=== PATIENT | female | born 1935 | race Caucasian/White ===

== ENCOUNTER → 2017-07-12 | Outpatient (CLI) | payer MEDICARE ==
[~2017-07-12] MED LIST: ASPI325T33 PO; ATOR20TA15 PO; CALC1TAB87 PO; CHOL500022 PO; COMMODE 3-IN-11 MIS; ECASA81 PO; FLAX10002 PO; HYDR-3580 PO; MULT10CA PO; WALKER WHEELS/F1 MIS
[2017-07-12 12:40] LABS: AUTOMATED NEUTROPHIL # 4.4 TH/MM3 (1.8-7.7); BASOPHIL % 0.8 % (0.0-2.0); EOSINOPHIL # 0.1 TH/MM3 (0-0.4); EOSINOPHIL % 2.1 % (0.0-4.0); HEMATOCRIT 41.7 % (35.0-46.0); HEMOGLOBIN 13.9 GM/DL (11.6-15.3); LYMPHOCYTE # 1.2 TH/MM3 (1.0-4.8); MEAN CORPUSCULAR HEMOGLOBIN 31.7 PG (27.0-34.0); MEAN CORPUSCULAR HGB CONC 33.4 % (32.0-36.0); MEAN PLATELET VOLUME 8.5 FL (7.0-11.0); MONO % 10.5 % (0.0-8.0); MONOCYTE # 0.7 TH/MM3 (0-0.9); NEUT % 67.6 % (16.0-70.0); PLATELET COUNT 218 TH/MM3 (150-450); RED BLOOD COUNT 4.39 MIL/MM3 (4.00-5.30); RED CELL DISTRIBUTION WIDTH 12.5 % (11.6-17.2); WHITE BLOOD COUNT 6.5 TH/MM3 (4.0-11.0)
[2017-07-12 12:49] LABS: INTERNATIONAL NORMALIZED RATIO 1.1 RATIO; PROTHROMBIN TIME - PATIENT 10.7 SEC (9.8-11.6)
[2017-07-12 13:11] LABS: BICARBONATE 29.1 MEQ/L (21.0-32.0); CALCIUM 9.1 MG/DL (8.5-10.1); CREATININE 1.06 MG/DL (0.50-1.00)
[2017-07-12 14:02] LABS: BILIRUBIN, URINE NEG (NEG); BLOOD, URINE NEG (NEG); GLUCOSE,URINE NEG (NEG); KETONE, URINE NEG (NEG); MUCUS URINE FEW /lpf (OCC); NITRITE,URINE NEG (NEG); PH, URINE 5.5 (5.0-8.5); SQUAMOUS EPITHELIAL CELL URINE 1 /hpf (0-5); URINE COLOR YELLOW (YELLW/STRAW); URINE LEUKOCYTE ESTERASE NEG (NEG)
--- NOTE | 2017-07-13 15:45 | EKG ---
Date Performed: 07/12/2017 Time Performed: 12:18:31 PTAGE: 81 years EKG: Sinus rhythm WITH FREQUENT VENTRICULAR PREMATURE COMPLEXES POSSIBLE LEFT ATRIAL ENLARGEMENT LOW QRS VOLTAGE IN WA ECORDIAL LEADS PATTERN CONSISTENT WITH PULMONARY DISEASE ABNORMAL ECG NO PREVIOUS TRACING Poor R-wave progression across the anterior precordium. Clinical neris elation strongly recommended. DOCTOR: Darrell Gonzalez Interpretating Date/Time 07/13/2017 15:44:31
== END ==
LOC: CPRE 11:38
PROVIDERS: ATTEND Orthopaedic Surgery Orthopaedic Surgery of the Spine
DX: Z01.812 Encounter for preprocedural laboratory examination (principal); Z01.810 Encounter for preprocedural cardiovascular examination; M79.609 Pain in unspecified limb
CPT/HCPCS: 36415; 80048; 81001; 85025; 85610; 85730; 93005

== ENCOUNTER 2017-07-20 07:41 | Inpatient (IN) | payer MEDICARE ==
[~2017-07-20] VITALS: Ht 162.6 cm; Wt 88.0 kg
[~2017-07-20 07:41] MED LIST changes: -ASPI325T33 PO; -COMMODE 3-IN-11 MIS; -HYDR-3580 PO; -WALKER WHEELS/F1 MIS
[2017-07-20] MEDS ORDERED: INSULIN HUMAN REGULAR 1,000 UNITS/10 ML VIAL SQ PRN (08:15)
[2017-07-20] MEDS ORDERED: SODIUM CHLORID 0.9% 500 ML IV PRN (08:15)
[2017-07-20] MEDS ORDERED: LACTATED RINGER'S 1000 ML IV PRN (08:15)
[2017-07-20] MEDS ORDERED: TRANEXAMIC ACID INJ 880 MG in SODIUM CHLORIDE 0.9% INJ 100 ML IV SCH (08:15)
[2017-07-20] MEDS ORDERED: VANCOMYCIN 1 GM/200 ML PREMIX IV SCH (08:15)
[2017-07-20] MEDS ORDERED: CHLORHEXIDINE GLUCONATE 2 % 1 PACK (2 CLOTHS) TOPICAL PRN (08:15)
[2017-07-20] MEDS ORDERED: POVIDONE IODINE 5% (ANTISEPSIS KIT) 4 APPLICATIONS EACH NARE PRN (08:15)
[2017-07-20] MEDS ORDERED: CHLORHEXIDINE GLUCONATE 4% SOLN 120 ML BTL TOPICAL SCH (08:15)
[2017-07-20] MEDS ORDERED: EXPAREL PERI-ARTICULAR INJECTION (TOTAL VOL. 60 ML) P-ARTICULR SCH ×2 (08:15)
[2017-07-20] MEDS ORDERED: METOPROLOL TARTRATE 25 MG TAB PO PRN (08:15)
[2017-07-20] MEDS ORDERED: ceFAZolin 2 GM in NS 100 ML IV SCH (08:15)
[2017-07-20] MEDS ORDERED: ACETAMINOPHEN 1000 MG/100 ML 100 ML IV ONE (09:52)
[2017-07-20] MEDS ORDERED: BUPIVACAINE/EPINEPHRINE 0.5% PF 10 ML VIAL ONE (09:55)
[2017-07-20] MEDS ORDERED: GENTAMICIN SULFATE 80 MG/2 ML VIAL ONE (09:55)
[2017-07-20] MEDS ORDERED: BUPIVACAINE/EPINEPHRINE 0.5% 50 ML VIAL ONE (09:55)
[2017-07-20] MEDS ORDERED: ceFAZolin INJ 1,000 MG VIAL ONE (10:21)
[2017-07-20] MEDS ORDERED: BUPIVACAINE/EPINEPHRINE 0.25% 50 ML VIAL ONE ×2 (10:29→10:39)
[2017-07-20] MEDS ORDERED: GLYCOPYRROLATE 1 MG/5 ML SYRINGE IV PUSH ONE (12:00)
[2017-07-20] MEDS ORDERED: ONDANSETRON HCL 4 MG/2 ML VIAL IV ONE (12:00)
[2017-07-20] MEDS ORDERED: LACTATED RINGER'S 1000 ML INJ 2,000 ML IV ONE (12:00)
[2017-07-20] MEDS ORDERED: PROPOFOL 200 MG/20 ML AMP IV ONE (12:00)
[2017-07-20] MEDS ORDERED: ROCURONIUM INJ 50 MG/5 ML SYRINGE IV PUSH ONE (12:00)
[2017-07-20] MEDS ORDERED: DEXAMETHASONE SOD PHOS 4 MG/ML VIAL IV ONE (12:00)
[2017-07-20] MEDS ORDERED: LIDOCAINE HCL 1% PF 5 ML SYRINGE OTHER ONE (12:00)
[2017-07-20] MEDS ORDERED: NEOSTIGMINE 5 MG/5 ML SYRINGE IV PUSH ONE (12:00)
--- NOTE | 2017-07-20 13:13 | PD.OP ---
cc: Isaías Massey MD Operative Report Date of Surgery: Jul 20, 2017 Preoperative Diagnosis: Osteoarthritis left hip Postoperative Diagnosis: Same Procedure: Left total hip replacement arthroplasty, direct anterior exposure Anesthesia: Gen. Surgeon: Isaías Massey [employer]obile Body Worker(s): JAYLEEN Lees Operation and Findings: EBL: 400 cc INDICATION: This patient presents with significant hip pain related to severe osteoarthritis of the left hip. Despite extensive conservative care this patient continues to be painful and now presents for surgical treatment. NOTE: Tracy Lees PA-C was present for the entire surgical procedure as my assistant county attorney. In my medical opinion her skill and care was necessary for the proper management of this patient. COMPONENTS: COMPANY: [employer] CUP: [place], 50, 100 series, gription surface LINER: Altrx 32, neutral STEM: [place], size 12, standard offset, hydroxyapatite-coated HEAD: Metal, 32, +5, 12/14 taper PROCEDURE: This patient was brought to the operating room and anesthetized in the supine position and positioned on the fracture table with both legs held extended. The left hip and leg was scrubbed with alcohol followed by Hibiclens followed by ChloraPrep and draped sterilely. Antibiotics were given within routine time window and a timeout was done. A 4 inch incision was made starting 2 cm distal and 2 cm lateral to the anterior superior iliac spine. The fascia rosie was opened longitudinally. The interval between the fascia rosie and the rectus was opened down to the capsule of the hip joint. Retractors were positioned allowing good visualization of the capsule. This was opened longitudinally and flaps were created. Stay sutures were utilized. Exposure was excellent. The neck was cut at the proper location using fluoroscopy as a guide. The head was removed. Deep retractors were positioned allowing good visualization of the acetabulum. Acetabulum was deepened down to the floor starting with a proper size reamer and reaming up to 49 mm. A trial was utilized. Fluoroscopy was used to check position and confirmed satisfactory alignment. The rim was reamed with a 50 mm reamer and the final cup was positioned in approximately 20 of anteversion and 40-45 of abduction. Position was satisfactory. A single hole eliminator was positioned followed by the final liner. The lifting hook was utilized. The leg was dropped to the floor, maximally externally rotated and brought across the midline. Retractors were positioned. A box osteotome was utilized followed by progressive broaching to the proper stem size. Trial reduction showed excellent alignment and fit. With 60 of external rotation the leg was dropped to the floor without evidence of anterior subluxation. The wound was irrigated. The final stem was inserted and was found to be very stable. The final reduction using the final head. Stability was as previously noted. Intraoperative x-rays were taken. The wound was irrigated copiously. Hemostasis was controlled. Local anesthesia was utilized. The capsule was repaired with #2 Tycron sutures. The fascia rosie was repaired with running 0 PDS on a loop. Subcutaneous tissue was approximated with 2-0 Vicryl and skin with running intradermal 3-0 Vicryl followed by Dermabond. A sterile dressing was applied. The patient was awakened and taken to the recovery room in satisfactory condition. FINDINGS: There was severe osteoarthritis of the left hip. There was no complication that was appreciated. Isaías Massey MD Jul 20, 2017 13:13
[2017-07-20] MEDS ORDERED: HYDR-3580 PO (13:15)
[2017-07-20] MEDS ORDERED: ASPI325T33 PO (13:15)
--- NOTE | 2017-07-20 13:18 | RADRPT ---
EXAM DATE/TIME: 07/20/2017 10:33 [facility] COMPARISON: No previous studies available for comparison. INDICATIONS : Left total hip arthroplasty. MEDICAL HISTORY : None. SURGICAL HISTORY : None. ENCOUNTER: Initial ACUITY: 1 day PAIN SCORE: Non-responsive. LOCATION: Left hip FINDINGS: The patient is status post left total hip replacement with prosthesis in good position. No fracture o r dislocation is noted. CONCLUSION: Status post left total hip replacement with prosthesis in good position. Kj Cody MD on July 20, 2017 at 13:15 Board Certified Radiologist. This report was verified electronically.
[2017-07-20] MEDS ORDERED: *MEPERIDINE 25 MG INJ VIAL PERIprocedural Use ONLY ONE (13:42)
[2017-07-20] MEDS ORDERED: *morphine SULFATE 4 MG/ML PERIprocedure ONLY ONE (13:49)
[2017-07-20] MEDS ORDERED: *morphine SULFATE 8 MG/ML PERIprocedure ONLY ONE (14:00)
[2017-07-20] MEDS ORDERED: MORPHINE SULFATE 8 MG/ML INJ IM PRN (14:15)
[2017-07-20] MEDS ORDERED: MISCELLANEOUS NURSING INFORMATION XX PRN (14:15)
[2017-07-20] MEDS: LACTATED RINGER'S 1000 ML INJ 1,000 ML IV SCH (14:15)
[2017-07-20] MEDS ORDERED: NALOXONE HCL 0.4 MG/ML AMP IV PUSH PRN (14:15)
[2017-07-20] MEDS ORDERED: ASPIRIN 81 MG CHEW TAB CHEW ONE (14:15)
[2017-07-20] MEDS ORDERED: MISCELLANEOUS PHARMACY INFORMATION XX SCH (14:15)
[2017-07-20] MEDS ORDERED: DO NOT ADM ANY ANTICOAGULANT DRUGS PRN (14:30)
[2017-07-20] MEDS ORDERED: HYDROmorphone HCL PF 0.5 MG/0.5 ML SYRINGE ONE (14:34)
[2017-07-20] MEDS ORDERED: Post-op Orders (for Pharmacy) XX ONE (15:00)
[2017-07-20 17:00] VITALS: BP 129/63; PULSE 58; RESP 18; TEMP 97.6; O2SAT 97
[2017-07-20 19:00] VITALS: BP 133/68; PULSE 58; RESP 16; TEMP 97.7; O2SAT 97
[2017-07-20] MEDS: ASPIRIN EC 325 MG TABEC PO SCH (21:00)
[2017-07-20] MEDS ORDERED: WALKER WHEELS/F1 MIS (21:23)
[2017-07-20] MEDS ORDERED: COMMODE 3-IN-11 MIS (21:24)
--- NOTE | 2017-07-20 21:27 | HHI.FF ---
Face to Face Verification Diagnosis: (1) Osteoarthritis of left hip Physical Therapy Gait training, Safety evaluation, Transfer training, bed to chair Hip: Total hip, Protocol: Left, Progress to weight bearing Left LE Weight Bearing: WB as tolerated Additional Instructions PT 3-4x/week for 2 weeks. WBAT Left LE. RUSLAN, anterior, precautions. Gait training. Nursing RN Days per Week: 2 x Week(s): 1 Nursing: Other Dressing Changes: Do not change dressing Additional Instructions Vitals assessment. Dressing assessment - do not change dressing unless saturated. I have seen patient Radha Clarke on 07/20/17. My clinical findings support the need for the requested home health care services because: Limited ability to care for self High risk of falls I certify that my clinical findings support that this patient is homebound because: Post-op weakness Unsteady gait/balance Sandra Castillo Jul 20, 2017 21:27
--- NOTE | 2017-07-20 21:31 | HHI.DS ---
Discharge Summary Admission Date Jul 20, 2017 at 07:41 Discharge Date: Jul 22, 2017 Admitting Diagnosis see below Diagnosis: (1) Osteoarthritis of left hip Diagnosis: Principal ICD Codes: M16.12 - Unilateral primary osteoarthritis, left hip Procedures Left total hip arthroplasty, direct anterior approach Brief History This is a 81 year old female patient with a one year history of left hip pain. She began noticing increasing pain with activity. She started using biofreeze and OTC medications. She attempted a home exercise program for several months. She sought out medical treatment. Xrays were taken showing advancing arthritis of her hip. She was prescribed diclofenac. Physical therapy was ordered but the patient discontinued it due to pain. Eventually surgical treatment was recommended in the form of total hip arthroplasty. She agreed and now presents for the above. Pt Condition on Discharge: Stable Discharge Disposition: Discharge Home Discharge Instructions Diet Instructions: As Tolerated, No Restrictions, High Fiber Diet Activities You Can Perform: Weight Bearing as Ze[place] Activities to Avoid: Strenuous Activity Additional Activity Instruc.: RUSLAN anterior protocol New Medications: Commode 3-in-1 (Commode 3-in-1) 1 Mis Mis EA .XX DIRECTED, #1 0 Refills Walker with Front Wheels (Walker with Front Wheels) 1 Mis Mis EA .XX DIRECTED, #[address] (Aspirin EC) 325 Mg Tabdr 81 MG PO BID for Prevent Blood Clot, #60 TAB Hydrocodone/Acetaminophen (Hydrocodone-Acetamin 7.5-325) 7.5 Mg-325 Mg Tablet 1 TAB PO Q4H PRN for pain, #42 TAB Continued Medications: Atorvastatin (Atorvastatin) 20 Mg Tab 20 MG PO HS for Cholesterol Management, #30 TAB 0 Refills Calcium Carbonate-Cholecalciferol (Calcium 600 with Vitamin D) 600-400 mg-Unit Tab 1 TAB PO DAILY for Calcium Supplement, TAB 0 Refills Cholecalciferol (Vitamin D3 Maximum Strength) 5,000 Unit Cap 5000 UNITS PO DAILY for Nutritional Supplement, #30 CAP 0 Refills Flaxseed (Linseed) (Flax Seed Oil 1000 mg) 1,000 Mg Cap 1 CAPLET PO DAILY Vit C/E/Zn/Coppr/Lutein/Zeaxan (Preservision Areds 2 Softgel) 250-200-40 Capsule 1 CAPLET PO DAILY Discontinued Medications: Aspirin DR (Aspirin DR) 81 Mg Tabdr 81 MG PO DAILY, TAB 0 Refills Sandra Castillo Jul 20, 2017 21:31
[2017-07-20] MEDS: ATORVASTATIN 20 MG TAB PO SCH (21:36)
[2017-07-20] MEDS: SENNOSIDES 8.6 MG TAB PO SCH (21:38)
[2017-07-20] MEDS: MAGNESIUM HYDROXIDE SUSP 30 ML CUP PO SCH (21:38)
[2017-07-20 23:55] VITALS: BP 115/62; PULSE 66; RESP 18; TEMP 97.3; O2SAT 97
[2017-07-20] MEDS: ACETAMINOPHEN/HYDROcodone 325 MG/7.5 MG TAB PO PRN (23:57)
[2017-07-21] VITALS (7 sets, daily range): BP systolic 89–147; BP diastolic 51–62; PULSE 50–96; RESP 16–18; TEMP 97.5–98.5; O2SAT 92–99
[2017-07-21] MEDS: LACTATED RINGER'S 1000 ML INJ 1,000 ML IV SCH ×2 (02:45→15:15)
[2017-07-21] MEDS: ACETAMINOPHEN/HYDROcodone 325 MG/7.5 MG TAB PO PRN ×4 (04:12→18:55)
[2017-07-21 06:54] LABS: HEMATOCRIT 32.1 % (35.0-46.0); HEMOGLOBIN 10.9 GM/DL (11.6-15.3)
[2017-07-21] MEDS: ASPIRIN EC 325 MG TABEC PO SCH ×2 (09:24→21:00)
[2017-07-21] MEDS: MAGNESIUM HYDROXIDE SUSP 30 ML CUP PO SCH ×2 (09:24→21:19)
--- NOTE | 2017-07-21 12:52 | HHI.DCPOC ---
Discharge Care Plan Diagnosis: (1) Osteoarthritis of left hip Your Health Problems Are: Difficulty with ADL Incision/Drains Swelling Goals to Promote Your Health * To prevent worsening of your condition and complications * To maintain your health at the optimal level Directions to Meet Your Goals Take your medications as prescribed Follow your dietary instruction Follow activity as directed Keep your appointments as scheduled Take your immunizations and boosters as scheduled If your symptoms worsen call your PCP, if no PCP go to Urgent Care Center or Emergency Room Smoking is Dangerous to Your Health. Avoid second hand smoke Call the 24-hour hour crisis hotline for domestic abuse at Sandra Castillo Jul 21, 2017 12:51
--- NOTE | 2017-07-21 12:54 | PD.ORT.PN ---
Subjective Subjective Remarks Doing well. Moderate left thigh pain, little discomfort in the groin. No new radiating leg pain. No loss sensation. Appetite ok. Questions about surgery. Objective Vitals Vital Signs Date Time Temp Pulse Resp B/P (MAP) Pulse Ox O2 Delivery O2 Flow Rate FiO2 07/21/17 10:30 18 07/21/17 09:15 99 21 07/21/17 08:00 98.2 50 16 89/51 (64) 92 07/21/17 04:05 97.5 62 18 139/62 (87) 96 07/20/17 23:55 97.3 66 18 115/62 (79) 97 07/20/17 19:00 97.7 58 16 133/68 (89) 97 07/20/17 17:00 97.6 58 18 129/63 (85) 97 07/20/17 16:41 59 12 109/62 (78) 98 Nasal Cannula 2 07/20/17 14:15 81 12 118/81 (93) 97 Nasal Cannula 2 07/20/17 14:00 84 12 122/63 (82) 97 Nasal Cannula 2 07/20/17 13:45 60 12 150/78 (102) 97 Nasal Cannula 2 07/20/17 13:34 98.4 104 12 133/85 (101) 97 Nasal Cannula 2 I/O 07/20/17 07/20/17 07/20/17 07/21/17 07/21/17 07/21/17 07:00 15:00 23:00 07:00 15:00 23:00 Intake Total 357 ml 480 ml Output Total 400 ml 500 ml Balance -400 ml 357 ml -20 ml Intake Oral 480 ml IV Total 357 ml Output Urine Total 500 ml Estimated Blood Loss 400 ml # Voids 1 # Bowel Movements 0 Result Diagram: 07/21/17 0623 Procedures Left total hip arthroplasty, direct anterior approach Objective Remarks Laying in bed NAD With LLE Hip dressing c/d/i, no new drainage, mild ecchymosis, mild swelling, no erythema +motor at, +sens, +nvi Neg homans Assessment & Plan Ortho Post Op Day #: 1 Problem List: (1) Osteoarthritis of left hip ICD Codes: M16.12 - Unilateral primary osteoarthritis, left hip Qualifiers: Qualified Codes: M16.12 - Unilateral primary osteoarthritis, left hip Assessment and Plan pod#1 s/p L RUSLAN, anterior Ortho stable. Pain moderately controlled. PT - WBAT LLE. Anterior RUSLAN precautions. [place] 7.5mg for pain. ASA 81mg Hold dressing changes unless saturated. D/C planning, Home w [facility] tomorrow. F2F signed. Sandra Castillo Jul 21, 2017 12:54
[2017-07-21] MEDS: ATORVASTATIN 20 MG TAB PO SCH (21:06)
[2017-07-21] MEDS: SENNOSIDES 8.6 MG TAB PO SCH (21:06)
[2017-07-21] MEDS: ASPIRIN EC 81 MG TABEC PO SCH (21:19)
[2017-07-22] VITALS: BP 96/53; PULSE 46; RESP 20; TEMP 98.5; O2SAT 94
[2017-07-22] MEDS: ACETAMINOPHEN/HYDROcodone 325 MG/7.5 MG TAB PO PRN ×3 (00:45→12:49)
[2017-07-22] MEDS: LACTATED RINGER'S 1000 ML INJ 1,000 ML IV SCH (02:54)
[2017-07-22 04:00] VITALS: BP 100/51; PULSE 86; RESP 18; TEMP 97.9; O2SAT 97
[2017-07-22 08:00] VITALS: BP 99/51; PULSE 45; RESP 17; TEMP 98.6; O2SAT 93
--- NOTE | 2017-07-22 08:45 | PD.ORT.PN ---
Subjective Subjective Remarks Doing well. Moderate left thigh pain but 'a little better today'. No new radiating leg pain. No loss sensation. Appetite ok. Ready for discharge. Objective Vitals Vital Signs Date Time Temp Pulse Resp B/P (MAP) Pulse Ox O2 Delivery O2 Flow Rate FiO2 07/22/17 08:00 98.6 45 17 99/51 (67) 93 07/22/17 04:00 97.9 86 18 100/51 (67) 97 07/22/17 00:00 98.5 46 20 96/53 (67) 94 07/21/17 20:55 98 07/21/17 19:58 98.5 82 16 111/57 (75) 98 07/21/17 16:00 97.8 96 18 112/55 (74) 95 07/21/17 12:00 97.8 61 18 147/61 (89) 97 07/21/17 10:30 18 07/21/17 09:15 99 21 I/O 07/21/17 07/21/17 07/21/17 07/22/17 07/22/17 07/22/17 07:00 15:00 23:00 07:00 15:00 23:00 Intake Total 480 ml 450 ml Output Total 500 ml Balance -20 ml 450 ml Intake Oral 480 ml 450 ml Output Urine Total 500 ml # Voids 1 3 3 # Bowel Movements 0 0 Result Diagram: 07/21/17 0623 Procedures Left total hip arthroplasty, direct anterior approach Objective Remarks Laying in bed NAD LLE Hip dressing c/d/i, no new drainage, mild ecchymosis, mild swelling, no erythema +motor at, +sens, +nvi Neg homans Assessment & Plan Ortho Post Op Day #: 2 Problem List: (1) Osteoarthritis of left hip ICD Codes: M16.12 - Unilateral primary osteoarthritis, left hip Qualifiers: Qualified Codes: M16.12 - Unilateral primary osteoarthritis, left hip Assessment and Plan pod#2 s/p L RUSLAN, anterior Ortho stable. Pain controlled. Ok for d/c home w [facility] today after PT session. PT - WBAT LLE. Anterior RUSLAN precautions. [place] 7.5mg for pain. ASA 81mg Hold dressing changes unless saturated. F/U in 2 weeks as scheduled. F2F signed. Sandra Castillo Jul 22, 2017 08:45
[2017-07-22] MEDS: ASPIRIN EC 81 MG TABEC PO SCH (09:00)
[2017-07-22] MEDS: MAGNESIUM HYDROXIDE SUSP 30 ML CUP PO SCH (09:08)
[2017-07-22 12:00] VITALS: BP 120/58; PULSE 88; RESP 17; TEMP 98.8; O2SAT 94
== END 2017-07-22 12:51 | disposition home health service (06) | DRG 470 ==
LOC: HSDI 07:41 → N06A 17:05
PROVIDERS: ADMIT Orthopaedic Surgery Orthopaedic Surgery of the Spine; ATTEND Orthopaedic Surgery Orthopaedic Surgery of the Spine
PROC: 0SRB02A Replacement of Left Hip Joint with Metal on Polyethylene Synthetic Substitute, Uncemented, Open Approach (ICD-10-PCS; principal; 2017-07-20 10:56)
DX: M16.12 Unilateral primary osteoarthritis, left hip (principal); M51.36 Other intervertebral disc degeneration, lumbar region; E78.00 Pure hypercholesterolemia, unspecified; Q76.2 Congenital spondylolisthesis; Z85.3 Personal history of malignant neoplasm of breast; Z87.891 Personal history of nicotine dependence; Z79.82 Long term (current) use of aspirin; Z92.21 Personal history of antineoplastic chemotherapy
CPT/HCPCS: 73502; 76000; 85014; 85018; 86850; 86900; 86901; 86920; 94150; C1776; J0131; J0690; J1100; J1170; J1580; J2175; J2270; J2405; J2710; J3010; J3370; J7120